=== PATIENT | male | born 1970 | race African-American/Black ===

== ENCOUNTER 2025-02-05 23:36 | Emergency (ER) | payer BC, OTHER ==
[2025-02-05 23:51] VITALS: TEMP 97.7; BMI 28.0
[2025-02-06 01:49] LABS: ABSOLUTE IMMATURE GRANULOCYTES 0.02 x10^3/uL (0.0-0.031); BASOPHILS # 0.06 x10^3/uL (0.01-0.08); EOSINOPHIL % 3.9 % (0.8-7.0); EOSINOPHILS # 0.28 x10^3/uL (0.04-0.54); MCHC 33.9 g/dl (32.3-36.5); MEAN CELL VOLUME 91.2 fl (79.0-92.2); MEAN PLT VOLUME 10.1 fl (9.4-12.4); MONOCYTE # 0.50 x10^3/uL (0.30-0.82); MONOCYTE % 6.9 % (5.3-12.2); RDW 12.9 % (12.2-16.1)
[2025-02-06 02:10] LABS: GLUCOSE,RANDOM 102.0 mg/dL (74-106)
[2025-02-06 02:11] LABS: TOT PROT 7.1 g/dl (6.4-8.2)
[2025-02-06 02:12] LABS: CO2 28.0 mmol/L (21-32)
[2025-02-06 02:13] LABS: ALK PHOS 58.0 U/L (40-150)
[2025-02-06 02:16] LABS: CREATININE 1.42 mg/dL (0.55-1.3); SGOT/AST 35.0 U/L (5-34); SGPT/ALT 24.0 U/L (0-55)
[2025-02-06] MEDS: SODIUM CHLORIDE 0.9% 500 ML INFUS.BAG IV ONE (05:19)
[2025-02-06] MEDS: LACTATED RINGERS SOLUTION 1000 ML INFUS.BAG IV ONE (05:20)
[2025-02-06 05:54] VITALS: BP 141/86; PULSE 72; RESP 16
== END 2025-02-06 05:58 | disposition home or self-care (01) ==
LOC: JER 23:36
DX: R55 Syncope and collapse (principal); H53.8 Other visual disturbances; R07.89 Other chest pain
CPT/HCPCS: 36415; 70450-TC; 71046-TC-FY; 80053; 83735; 84484; 85025; 93005; 93010; 99285-25